=== PATIENT | male | born 1970 | race Caucasian/White ===

== ENCOUNTER 2017-07-13 11:17 | Inpatient (IN) | payer OTHER ==
--- NOTE | 2017-07-13 12:52 | XRay Report ---
ROUTINE CHEST, TWO VIEWS: HISTORY: Shortness of breath. The trachea, heart, mediastinal contour, lung steinberg and bony thorax are unremarkable. 2-lead pacemaker device is in position. IMPRESSION: Unremarkable chest x-ray.
[2017-07-13 13:02] LABS: Anion Gap 17 mmol/L; Blood Urea Nitrogen 18 mg/dL (9-20); Calcium 9.2 mg/dL (8.4-10.2); Carbon Dioxide 25 mmol/L (22-30); Chloride 101.5 mmol/L (98-107); Glucose 134 mg/dL (75-100); Potassium 4.1 mmol/L (3.6-5.0); Sodium 139 mmol/L (137-145)
[2017-07-13 13:03] LABS: Basophils % (Auto) 0.5 % (0.0-1.8); Eosinophils % (Auto) 0.2 % (0.0-4.3); Hematocrit 42.9 % (35.5-45.6); Hemoglobin 14.2 gm/dl (11.8-15.2); Mean Corpuscular HGB Conc 33 % (32-34); Mean Corpuscular Hemoglobin 30 pg (28-32); Mean Corpuscular Volume 92 fl (84-94); Platelet Count 265 K/mm3 (140-440); Red Blood Count 4.68 M/mm3 (3.65-5.03); White Blood Count 9.7 K/mm3 (4.5-11.0)
--- NOTE | 2017-07-13 16:12 | Consultation ---
History of Present Illness Consult date: 07/13/17 Consult reason: arrhythmia History of present illness: This is a 47yr old male who presents with recurrent AICD discharge. Patient was just released from [facility] on yesterday after treatment for multiple ICD shocks. He reports a recent complex history of ventricular arrhythmias and has a [facility] cardiac defibrillator in situ. He is on amiodarone 200mg daily. Patient reports an extensive cardiac workup including a cardiac catheterization and EP study done at [facility] main 3 weeks ago. While in the ED, his AICD was interrogated which revealed ventricular tachycardia requiring appropriate therapy. The patient is resting comfortably and has no chest pain, shortness of breath or palpitations. Cardiac consultation was requested. Medications and Allergies Allergies Allergy/AdvReac Type Severity Reaction Status Date / Time No Known Allergies Allergy Unverified 07/13/17 11:56 Home Medications Medication Instructions Recorded Confirmed Last Taken Type Amiodarone HCl [Amiodarone 100 MG 200 mg PO 07/13/17 07/13/17 History TAB] Active Meds: Active Medications Amiodarone HCl 900 mg/ (Dextrose) 500 mls @ 33.33 mls/hr IV DIRECT TERESA; 1 MG /MIN PRN Reason: Protocol Physical Examination Vital Signs Temp Pulse Resp BP Pulse Ox 98.1 F 64 20 129/90 99 07/13/17 11:57 07/13/17 11:57 07/13/17 11:57 07/13/17 11:57 07/13/17 11:57 General appearance: no acute distress HEENT: Positive: PERRL Neck: Positive: trachea midline Cardiac: Positive: Reg Rate and Rhythm Lungs: Positive: Decreased Breath Sounds Neuro: Positive: Grossly Intact Extremities: Absent: edema Results 07/13/17 12:28 07/13/17 12:28 CBC 07/13/17 Range/Units 12:28 WBC 9.7 (4.5-11.0) K/mm3 RBC 4.68 (3.65-5.03) M/mm3 Hgb 14.2 (11.8-15.2) gm/dl Hct 42.9 (35.5-45.6) % Plt Count 265 (140-440) K/mm3 Lymph # 1.4 (1.2-5.4) K/mm3 [place] # 0.7 (0.0-0.8) K/mm3 Eos # 0.0 (0.0-0.4) K/mm3 Baso # 0.0 (0.0-0.1) K/mm3 Comprehensive Metabolic Panel 07/13/17 Range/Units 12:28 Sodium 139 (137-145) mmol/L Potassium 4.1 (3.6-5.0) mmol/L Chloride 101.5 (98-107) mmol/L Carbon Dioxide 25 (22-30) mmol/L BUN 18 (9-20) mg/dL Creatinine 0.8 (0.8-1.5) mg/dL Glucose 134 H (75-100) mg/dL Calcium 9.2 (8.4-10.2) mg/dL Assessment and Plan AICD discharge ([facility]) interrogation revealed VT requiring appropriate therapy. Plan: We will recommend intravenous amiodarone drip for suppression of VT. Obtain cardiac records from [facility] main.
--- NOTE | 2017-07-13 16:33 | Emergency Department Report ---
ED General Adult HPI - General Chief complaint: Arrhythmia/Palpitations Stated complaint: PACE MAKER WENT OFF Time Seen by Provider: 07/13/17 14:32 Source: patient Mode of arrival: Wheelchair Limitations: No Limitations - History of Present Illness Initial comments: Patient is a 47-year-old male asked medical history of implantable pacemaker secondary to unknown cardiac issue. Comes in with chest pain and ICD and defibrillator firing constantly. Patient had a pacemaker inserted on 2016 he was at [facility] for 3 days and released. Patient states that he is having chest pain secondary to a CD firing. As an electrical type of pain it is a 7 out of 10 as located on left side of his chest it is intermittent. He denies any nausea. But he is diaphoretic. She states he's acts [facility] for a second opinion due to the internal auditor at [facility] not knowing what was causing his symptoms. Severity scale (0 -10): 0 - Related Data Home Medications Medication Instructions Recorded Confirmed Last Taken Amiodarone HCl [Amiodarone 100 MG 200 mg PO 07/13/17 07/13/17 TAB] Allergies Allergy/AdvReac Type Severity Reaction Status Date / Time No Known Allergies Allergy Unverified 07/13/17 11:56 ED Review of Systems ROS: Stated complaint: PACE MAKER WENT OFF Other details as noted in HPI Constitutional: denies: chills, fever Eyes: denies: eye pain, eye discharge, vision change ENT: denies: ear pain, throat pain Respiratory: denies: cough, shortness of breath, wheezing Cardiovascular: chest pain. denies: palpitations Endocrine: no symptoms reported Gastrointestinal: denies: abdominal pain, nausea, diarrhea Genitourinary: denies: urgency, dysuria Musculoskeletal: denies: back pain, joint swelling, arthralgia Skin: denies: rash, lesions Neurological: denies: headache, weakness, paresthesias Psychiatric: denies: anxiety, depression Hematological/Lymphatic: denies: easy bleeding, easy bruising ED Past Medical Hx - Past Medical History Previous Medical History?: Yes Additional medical history: cardiac arrhythmia - Surgical History Past Surgical History?: Yes Hx Appendectomy: Yes - Social History Smoking Status: Never Smoker Substance Use Type: Prescribed - Medications Home Medications: Home Medications Medication Instructions Recorded Confirmed Last Taken Type Amiodarone HCl [Amiodarone 100 MG 200 mg PO 07/13/17 07/13/17 History TAB] ED Physical Exam - General Limitations: No Limitations General appearance: alert, in no apparent distress - Head Head exam: Present: atraumatic, normocephalic - Eye Eye exam: Present: normal appearance - ENT ENT exam: Present: mucous membranes moist - Neck Neck exam: Present: normal inspection - Respiratory Respiratory exam: Present: normal lung sounds bilaterally. Absent: respiratory distress - Cardiovascular Cardiovascular Exam: Present: regular rate, normal rhythm. Absent: systolic murmur, diastolic murmur, rubs, gallop - GI/Abdominal GI/Abdominal exam: Present: soft, normal bowel sounds - Rectal Rectal exam: Present: deferred - Extremities Exam Extremities exam: Present: normal inspection - Back Exam Back exam: Present: normal inspection - Neurological Exam Neurological exam: Present: alert, oriented X3 - Psychiatric Psychiatric exam: Present: normal affect, normal mood - Skin Skin exam: Present: intact, normal color, diaphoretic. Absent: rash ED Course Vital Signs 07/13/17 07/13/17 07/13/17 11:57 12:50 12:51 Temperature 98.1 F Pulse Rate 64 63 Respiratory 20 16 16 Rate Blood Pressure 129/90 Blood Pressure 122/97 [Right] O2 Sat by Pulse 99 99 99 Oximetry - Reevaluation(s) Reevaluation #1: 07/13/17 16:34 The patient comes in and is evaluated by [facility]. His pacemaker was interrogated his atrial tachycardic pacemaker is not operating well. - Consultations Consultation #1: 07/13/17 16:[address] Han internal auditor at [facility] he will see the patient and patient will be nothing by mouth after midnight. ED Medical Decision Making - Lab Data Result diagrams: 07/13/17 12:28 07/13/17 12:28 Lab Results 07/13/17 07/13/17 Range/Units 12:28 12:28 WBC 9.7 (4.5-11.0) K/mm3 RBC 4.68 (3.65-5.03) M/mm3 Hgb 14.2 (11.8-15.2) gm/dl Hct 42.9 (35.5-45.6) % MCV 92 (84-94) fl MCH 30 (28-32) pg MCHC 33 (32-34) % RDW 12.0 L (13.2-15.2) % Plt Count 265 (140-440) K/mm3 Lymph % (Auto) 14.6 (13.4-35.0) % [place] % (Auto) 7.3 (0.0-7.3) % Eos % (Auto) 0.2 (0.0-4.3) % Baso % (Auto) 0.5 (0.0-1.8) % Lymph # 1.4 (1.2-5.4) K/mm3 [place] # 0.7 (0.0-0.8) K/mm3 Eos # 0.0 (0.0-0.4) K/mm3 Baso # 0.0 (0.0-0.1) K/mm3 Seg Neutrophils % 77.4 H (40.0-70.0) % Seg Neutrophils # 7.5 (1.8-7.7) K/mm3 Sodium 139 (137-145) mmol/L Potassium 4.1 (3.6-5.0) mmol/L Chloride 101.5 (98-107) mmol/L Carbon Dioxide 25 (22-30) mmol/L Anion Gap 17 mmol/L BUN 18 (9-20) mg/dL Creatinine 0.8 (0.8-1.5) mg/dL Estimated GFR > 60 ml/min BUN/Creatinine Ratio 22.50 % Glucose 134 H (75-100) mg/dL Calcium 9.2 (8.4-10.2) mg/dL Troponin T < 0.010 (0.00-0.029) ng/mL - EKG Data -: EKG Interpreted by Ny - EKG Data 07/13/17 16:37 EKG shows sinus rhythm multiple ventricular premature complexes borderline T- wave abnormalities and prolonged QT interval. No prior comparison. - Radiology Data Radiology results: report reviewed, image reviewed Chest x-ray: Shows no acute cardiopulmonary disease. - Medical Decision Making Chief medical diagnosis: Ectopic pacemaker Differential medical diagnosis: Arrhythmia, ventricular fibrillation, ventricular tachycardia, Non stemi I will get CBC, CMP, EKG, chest x-ray, troponin troponin and interrogate pacemaker and IV pain medication. Patient's atrial tachycardiac pacer is not functioning per [facility]'s pacer tach. I will consult with internal auditor. Patient will be admitted to the hospital discussed with patient he agrees with plan. Critical care attestation.: If time is entered above; I have spent that time in minutes in the direct care of this critically ill patient, excluding procedure time. ED Disposition Clinical Impression: Ventricular tachycardia Chest pain Qualifiers: Chest pain type: unspecified Qualified Code(s): R07.9 - Chest pain, unspecified Pacemaker complications Qualifiers: Encounter type: initial encounter Qualified Code(s): T82.9XXA - Unspecified complication of cardiac and vascular prosthetic device, implant and graft, initial encounter Disposition: 09 OP ADMIT IP TO THIS HOSP Is pt being admited?: Yes Does the pt Need Aspirin: No Condition: Stable Instructions: Chest Pain (ED) Referrals: PRIMARY CARE, [Primary Care Provider] - 3-5 Days Time of Disposition: 16:43
[2017-07-13] MEDS ORDERED: MORPHINE IV ONE (16:46)
[2017-07-13] MEDS ORDERED: CORDARONE 900 MG in D5W 482 ML IV SCH (17:00)
[2017-07-13] MEDS ORDERED: DILAUDID IV PRN (19:08)
[2017-07-13] MEDS ORDERED: MILK OF MAGNESIA PO PRN (19:08)
[2017-07-13] MEDS ORDERED: AMBIEN PO PRN (19:08)
[2017-07-13] MEDS ORDERED: ZOFRAN IV PRN (19:08)
[2017-07-13] MEDS ORDERED: TYLENOL PO PRN (19:08)
[2017-07-13] MEDS ORDERED: PERCOCET 5/325 PO PRN (19:08)
[2017-07-13] MEDS ORDERED: DULCOLAX PR PRN (19:08)
--- NOTE | 2017-07-13 19:08 | History and Physical Report ---
History of Present Illness Date of examination: 07/13/17 Date of admission: 07/13/17 16:44 Chief complaint: 07/13/17 CC: RECURRENT PALPITATIONS AND AICD SHOCKS 1 week History of present illness: SNOQUALMIE: 47 y/o male with no significant PMH till 2016 developed severe palpitations and was diagnosed to be in V tach.Had AICD after admission to [facility] .Had multiple discharges 1 week ago - was readmitted AICD interrogated and was started on Amiodarone 200 mg po BID.Had as many as 69 shocks/discharges 2 days ago.Today he had amout 3 discharges which is much better but patient worried about recurrent discharges.No Chest pain or SOB.No Exacerbating or relieving factors. Past History Past Medical History: arrhythmia (V tach) Past Surgical History: Other (Aicd insertion) Medications and Allergies Allergies Allergy/AdvReac Type Severity Reaction Status Date / Time No Known Allergies Allergy Unverified 07/13/17 11:56 Home Medications Medication Instructions Recorded Confirmed Last Taken Type Amiodarone HCl [Amiodarone 100 MG 200 mg PO BID 07/13/17 07/13/17 07/13/17 History TAB] Active Meds: Active Medications Enoxaparin Sodium (Lovenox) 40 mg SUB-Q QDAY TERESA Amiodarone HCl 900 mg/ (Dextrose) 500 mls @ 33.33 mls/hr IV DIRECT TERESA; 1 MG /MIN PRN Reason: Protocol Last Admin: 07/13/17 17:36 Dose: 1 mg/min, 33.33 mls/hr Review of Systems All systems: negative Constitutional: no weight loss, no weight gain, no fever, no chills, no sweats, no night sweats Ears, nose, mouth and throat: no dysphagia, no hoarseness, no sore throat Cardiovascular: palpitations, no chest pain, no orthopnea, no edema, no syncope , no lightheadedness, no shortness of breath, no dyspnea on exertion Respiratory: no cough, no cough with sputum, no excessive sputum, no hemoptysis , no shortness of breath, no dyspnea on exertion Gastrointestinal: no abdominal pain, no nausea, no vomiting, no diarrhea, no constipation Genitourinary Male: no dysuria, no hematuria, no flank pain, no discharge, no urinary frequency, no urinary hesitancy Musculoskeletal: no neck stiffness, no neck pain, no shooting arm pain, no arm numbness/tingling Integumentary: no rash, no pruritis, no redness, no sores, no wounds, no jaundice, no boils, no blisters Neurological: no seizures, no syncope Psychiatric: no anxiety, no memory loss, no change in sleep habits, no sleep disturbances, no insomnia Endocrine: no cold intolerance, no heat intolerance, no polyphagia, no excessive thirst, no polydipsia, no polyuria Hematologic/Lymphatic: no easy bruising, no easy bleeding Allergic/Immunologic: no urticaria, no allergic rhinitis, no wheezing Exam - Constitutional Vitals: Temp Pulse Resp BP Pulse Ox 98.1 F 80 22 133/86 97 07/13/17 11:57 07/13/17 18:51 07/13/17 18:51 07/13/17 18:51 07/13/17 18:51 General appearance: Present: no acute distress, well-nourished - EENT Eyes: Present: PERRL ENT: hearing intact, clear oral mucosa - Neck Neck: Present: supple, normal ROM - Respiratory Respiratory effort: normal Respiratory: bilateral: CTA - Cardiovascular Heart rate: 70 (pvc's) Heart Sounds: Present: S1 & S2. Absent: rub, click - Extremities Extremities: pulses symmetrical, No edema Peripheral Pulses: within normal limits - Abdominal General gastrointestinal: Present: soft, non-tender, non-distended, normal bowel sounds Male genitourinary: Present: normal - Integumentary Integumentary: Present: clear, warm, dry - Musculoskeletal Musculoskeletal: gait normal, strength equal bilaterally - Psychiatric Psychiatric: appropriate mood/affect, intact judgment & insight - Neurologic Neurologic: CNII-XII intact, moves all extremities Results - Labs CBC & Chem 7: 07/13/17 12:28 07/13/17 12:28 Labs: Laboratory Last Values WBC 9.7 K/mm3 (4.5-11.0) 07/13/17 12:28 RBC 4.68 M/mm3 (3.65-5.03) 07/13/17 12:28 Hgb 14.2 gm/dl (11.8-15.2) 07/13/17 12:28 Hct 42.9 % (35.5-45.6) 07/13/17 12:28 MCV 92 fl (84-94) 07/13/17 12:28 MCH 30 pg (28-32) 07/13/17 12:28 MCHC 33 % (32-34) 07/13/17 12:28 RDW 12.0 % (13.2-15.2) L 07/13/17 12:28 Plt Count 265 K/mm3 (140-440) 07/13/17 12:28 Lymph % (Auto) 14.6 % (13.4-35.0) 07/13/17 12:28 [place] % (Auto) 7.3 % (0.0-7.3) 07/13/17 12:28 Eos % (Auto) 0.2 % (0.0-4.3) 07/13/17 12: Baso % (Auto) 0.5 % (0.0-1.8) 07/13/17 12:28 Lymph # 1.4 K/mm3 (1.2-5.4) 07/13/17 12:28 [place] # 0.7 K/mm3 (0.0-0.8) 07/13/17 12:28 Eos # 0.0 K/mm3 (0.0-0.4) 07/13/17 12:28 Baso # 0.0 K/mm3 (0.0-0.1) 07/13/17 12:28 Seg Neutrophils % 77.4 % (40.0-70.0) H 07/13/17 12:28 Seg Neutrophils # 7.5 K/mm3 (1.8-7.7) 07/13/17 12:28 Sodium 139 mmol/L (137-145) 07/13/17 12:28 Potassium 4.1 mmol/L (3.6-5.0) 07/13/17 12:28 Chloride 101.5 mmol/L (98-107) 07/13/17 12:28 Carbon Dioxide 25 mmol/L (22-30) 07/13/17 12:28 Anion Gap 17 mmol/L 07/13/17 12:28 BUN 18 mg/dL (9-20) 07/13/17 12:28 Creatinine 0.8 mg/dL (0.8-1.5) 07/13/17 12:28 Estimated GFR > 60 ml/min 07/13/17 12:28 BUN/Creatinine Ratio 22.50 % 07/13/17 12:28 Glucose 134 mg/dL (75-100) H 07/13/17 12:28 Calcium 9.2 mg/dL (8.4-10.2) 07/13/17 12:28 Troponin T < 0.010 ng/mL (0.00-0.029) 07/13/17 12:28 - Imaging and Cardiology EKG: report reviewed (recurrent pvc's) Chest x-ray: report reviewed Assessment and Plan Advance Directives: Yes (Full code) VTE prophylaxis?: Chemical Plan of care discussed with patient/family: Yes - Patient Problems (1) Ventricular tachycardia Current Visit: Yes Status: Acute Plan to address problem: Recurrent Patient on Amiodarone- better controlled Dr Christopher Sawyer EPS specialist consulted. (2) AICD discharge Current Visit: Yes Status: Acute Plan to address problem: Interrogated in [place] by [facility] represantative and settings were adjusted under the Guidance of Dr Sawyer Cont Amiodarone (3) DVT prophylaxis Current Visit: Yes Status: Acute Plan to address problem: On Lovenox
[2017-07-13] MEDS ORDERED: D5NS 1,000 ML IV SCH (20:00)
[2017-07-14 07:49] LABS: Basophils % (Auto) 0.4 % (0.0-1.8); Eosinophils % (Auto) 0.9 % (0.0-4.3); Hematocrit 38.6 % (35.5-45.6); Hemoglobin 13.5 gm/dl (11.8-15.2); Mean Corpuscular HGB Conc 35 % (32-34); Mean Corpuscular Hemoglobin 31 pg (28-32); Mean Corpuscular Volume 90 fl (84-94); Platelet Count 211 K/mm3 (140-440); Red Blood Count 4.32 M/mm3 (3.65-5.03); White Blood Count 10.8 K/mm3 (4.5-11.0)
[2017-07-14 08:07] LABS: Alanine Aminotransferase 27 units/L (7-56); Albumin 3.5 g/dL (3.9-5); Albumin/Globulin Ratio 0.9 %; Alkaline Phosphatase 61 units/L (35-129); Anion Gap 17 mmol/L; Blood Urea Nitrogen 14 mg/dL (9-20); Calcium 8.6 mg/dL (8.4-10.2); Carbon Dioxide 24 mmol/L (22-30); Chloride 101.8 mmol/L (98-107); Glucose 116 mg/dL (75-100); Potassium 3.7 mmol/L (3.6-5.0); Sodium 139 mmol/L (137-145); Total Protein 7.3 g/dL (6.3-8.2)
--- NOTE | 2017-07-14 09:22 | Progress Note ---
Assessment and Plan AICD discharge ([facility]) interrogation revealed VT requiring appropriate therapy. Hx of SVT normal coronaries, EF 50% on [facility] 06/2017 [place] [facility] [place] cardiac MRI 06/2017 recent EP ablation Subjective Date of service: 07/14/17 Interval history: No events on telemetry monitoring overnight. Remains on IV amiodarone. Objective Vital Signs Temp Pulse Resp BP BP Pulse Ox 07/14/17 08:18 98.6 F 80 24 122/69 96 07/14/17 05:27 97.9 F 70 16 138/39 96 07/14/17 05:24 98.6 F 80 16 126/84 98 07/13/17 21:14 18 98 07/13/17 21:02 78 07/13/17 21:01 98.1 F 80 18 135/91 97 07/13/17 20:23 80 19 141/83 97 07/13/17 20:00 77 18 133/86 98 07/13/17 19:30 77 24 133/86 98 07/13/17 19:00 80 25 H 135/79 97 07/13/17 18:51 80 22 133/86 97 07/13/17 18:41 81 23 128/74 93 07/13/17 18:30 84 16 128/74 97 07/13/17 18:21 84 9 L 133/86 98 07/13/17 18:11 84 16 133/86 98 07/13/17 18:00 80 26 H 133/86 98 07/13/17 17:51 80 23 138/85 97 07/13/17 17:41 80 27 H 138/85 96 07/13/17 17:30 84 18 138/85 07/13/17 17:01 85 15 141/85 - Physical Examination General: No Apparent Distress HEENT: Positive: PERRL Cardiac: Positive: Other (paced) Neuro: Positive: Grossly Intact Extremities: Absent: edema - Labs and Meds Cardiac Enzymes 07/14/17 Range/Units 06:44 AST 17 (5-40) units/L CBC 07/14/17 Range/Units 06:44 WBC 10.8 (4.5-11.0) K/mm3 RBC 4.32 (3.65-5.03) M/mm3 Hgb 13.5 (11.8-15.2) gm/dl Hct 38.6 (35.5-45.6) % Plt Count 211 (140-440) K/mm3 Lymph # 1.7 (1.2-5.4) K/mm3 [place] # 1.0 H (0.0-0.8) K/mm3 Eos # 0.1 (0.0-0.4) K/mm3 Baso # 0.0 (0.0-0.1) K/mm3 Comprehensive Metabolic Panel 07/14/17 Range/Units 06:44 Sodium 139 (137-145) mmol/L Potassium 3.7 (3.6-5.0) mmol/L Chloride 101.8 (98-107) mmol/L Carbon Dioxide 24 (22-30) mmol/L BUN 14 (9-20) mg/dL Creatinine 0.8 (0.8-1.5) mg/dL Glucose 116 H (75-100) mg/dL Calcium 8.6 (8.4-10.2) mg/dL AST 17 (5-40) units/L ALT 27 (7-56) units/L Alkaline Phosphatase 61 (35-129) units/L Total Protein 7.3 (6.3-8.2) g/dL Albumin 3.5 L (3.9-5) g/dL - Imaging and Cardiology EKG: report reviewed (recurrent pvc's)
[2017-07-14] MEDS ORDERED: LOVENOX SUB-Q SCH (10:00)
[2017-07-14] MEDS: LOVENOX SUB-Q SCH (11:14)
[2017-07-14] MEDS: TOPROL XL PO SCH (13:40)
--- NOTE | 2017-07-14 16:44 | Progress Note ---
Assessment and Plan Assessment and plan: AICD firing/palpitations. Patient admitted to Telemetry. He was evaluated by irrigation supervisor. On Amiodarone. No chest pain. Ventricular tachycardia. On Amiodarone Full code status History Interval history: Palpitations AICD firing no chest pain Hospitalist Physical - Physical exam Narrative exam: Gen Appearance: Not in acute distress HEENT: normocephalic, atraumatic Neck: supple, no JVD Lungs: Clear to auscultation, bilaterally, no rales, no wheeze Heart: S1 and S2 regular, no murmurs, rubs or gallop Abdomen: Soft , non tender, non distended, normal bowel sounds Extremity: No edema, no clubbing or cyanosis, Neuro : Awake,alert, oriented x 3, moves all extremities - Constitutional Vitals: Temp Pulse Resp BP Pulse Ox 98.6 F 80 24 122/69 96 07/14/17 08:18 07/14/17 08:18 07/14/17 08:18 07/14/17 08:18 07/14/17 08:18 General appearance: Present: no acute distress, well-nourished Results - Labs CBC & Chem 7: 07/14/17 06:44 07/15/17 00:49 Labs: Laboratory Last Values WBC 10.8 K/mm3 (4.5-11.0) 07/14/17 06:44 RBC 4.32 M/mm3 (3.65-5.03) 07/14/17 06:44 Hgb 13.5 gm/dl (11.8-15.2) 07/14/17 06:44 Hct 38.6 % (35.5-45.6) 07/14/17 06:44 MCV 90 fl (84-94) 07/14/17 06:44 MCH 31 pg (28-32) 07/14/17 06:44 MCHC 35 % (32-34) H 07/14/17 06:44 RDW 12.0 % (13.2-15.2) L 07/14/17 06:44 Plt Count 211 K/mm3 (140-440) 07/14/17 06:44 Lymph % (Auto) 15.9 % (13.4-35.0) 07/14/17 06:44 [place] % (Auto) 8.9 % (0.0-7.3) H 07/14/17 06:44 Eos % (Auto) 0.9 % (0.0-4.3) 07/14/17 06:44 Baso % (Auto) 0.4 % (0.0-1.8) 07/14/17 06:44 Lymph # 1.7 K/mm3 (1.2-5.4) 07/14/17 06:44 [place] # 1.0 K/mm3 (0.0-0.8) H 07/14/17 06:44 Eos # 0.1 K/mm3 (0.0-0.4) 07/14/17 06:44 Baso # 0.0 K/mm3 (0.0-0.1) 07/14/17 06:44 Seg Neutrophils % 73.9 % (40.0-70.0) H 07/14/17 06:44 Seg Neutrophils # 8.0 K/mm3 (1.8-7.7) H 07/14/17 06:44 Sodium 139 mmol/L (137-145) 07/14/17 06:44 Potassium 3.7 mmol/L (3.6-5.0) 07/14/17 06:44 Chloride 101.8 mmol/L (98-107) 07/14/17 06:44 Carbon Dioxide 24 mmol/L (22-30) 07/14/17 06:44 Anion Gap 17 mmol/L 07/14/17 06:44 BUN 14 mg/dL (9-20) 07/14/17 06:44 Creatinine 0.8 mg/dL (0.8-1.5) 07/14/17 06:44 Estimated GFR > 60 ml/min 07/14/17 06:44 BUN/Creatinine Ratio 17.50 % 07/14/17 06:44 Glucose 116 mg/dL (75-100) H 07/14/17 06:44 Calcium 8.6 mg/dL (8.4-10.2) 07/14/17 06:44 Total Bilirubin 1.20 mg/dL (0.1-1.2) 07/14/17 06:44 AST 17 units/L (5-40) 07/14/17 06:44 ALT 27 units/L (7-56) 07/14/17 06:44 Alkaline Phosphatase 61 units/L (35-129) 07/14/17 06:44 Troponin T < 0.010 ng/mL (0.00-0.029) 07/14/17 06:44 Total Protein 7.3 g/dL (6.3-8.2) 07/14/17 06:44 Albumin 3.5 g/dL (3.9-5) L 07/14/17 06:44 Albumin/Globulin Ratio 0.9 % 07/14/17 06:44
[2017-07-14] MEDS: CORDARONE PO SCH (22:38)
[2017-07-15 01:25] LABS: Anion Gap 17 mmol/L; BUN/Creatinine Ratio 21.11; Blood Urea Nitrogen 19 mg/dL (9-20); Calcium 8.9 mg/dL (8.4-10.2); Carbon Dioxide 24 mmol/L (22-30); Chloride 103.1 mmol/L (98-107); Glucose 120 mg/dL (75-100); Potassium 3.8 mmol/L (3.6-5.0); Sodium 140 mmol/L (137-145)
--- NOTE | 2017-07-15 10:02 | Progress Note ---
Assessment and Plan Impression Recurrent idiopathic ventricular tachycardia Status post prophylactic AICD with recent discharge History of normal coronaries by recent History of normal LV systolic function EF from 50% by recent echo History of unsuccessful ablation recently Plan Patient has been started on amiodarone and beta blockers and is stable Patient has an EP appointment set up for this Monday Patient can be discharged home All his electrolytes have been optimized Extensively discussed with patient and family Subjective Date of service: 07/15/17 Principal diagnosis: symptomatic ventricular tachycardia Interval history: No events overnight Objective Vital Signs Temp Pulse Resp BP Pulse Ox 07/15/17 03:32 97.9 F 80 18 125/82 96 07/14/17 22:59 80 18 115/70 96 07/14/17 21:00 80 07/14/17 19:34 98.3 F 80 18 126/77 97 07/14/17 17:03 98.3 F 80 20 112/82 97 - Physical Examination Narrative exam: GEN: NAD HEENT: Carotids 2+ NECK: SUPPLE, CVS: RRR, NORMAL S1S2 LUNGS/CHEST: CTA ABD: SOFT, EXTREMITIES- MSK: FROM X 4 EXTREMITIES NEURO: CN 2-12 GROSSLY INTACT, NO FOCAL DEFICITS PSY: CALM General: No Apparent Distress HEENT: Positive: PERRL Neck: Positive: trachea midline Neuro: Positive: Grossly Intact Extremities: Absent: edema - Labs and Meds Comprehensive Metabolic Panel 07/15/17 Range/Units 00:49 Sodium 140 (137-145) mmol/L Potassium 3.8 (3.6-5.0) mmol/L Chloride 103.1 (98-107) mmol/L Carbon Dioxide 24 (22-30) mmol/L BUN 19 (9-20) mg/dL Creatinine 0.9 (0.8-1.5) mg/dL Glucose 120 H (75-100) mg/dL Calcium 8.9 (8.4-10.2) mg/dL - Imaging and Cardiology EKG: report reviewed (recurrent pvc's)
[2017-07-15 10:17] VITALS: BP 117/82
--- NOTE | 2017-07-15 10:26 | Discharge Summary ---
Providers - Providers Date of Admission: 07/13/17 16:44 Date of discharge: 07/15/17 Attending physician: CHRISTIANO DUGAN 07/13/17 19:12 Consult to Physician [CONS] Routine Consulting Provider: CHANDRAKANT SAWYER Reason For Exam: defibrillator discharge Place consult to:: [facility] Notified:: yes Was contact made?: Yes If yes, spoke with:: joanna Primary care physician: ELECTROPHYSIOLOGY TECHNICIAN Hospitalization Condition: Stable Disposition: DC-01 TO HOME OR SELFCARE - Discharge Diagnoses (1) AICD discharge Status: Acute (2) Ventricular tachycardia Status: Acute Core Measure Documentation - Palliative Care Palliative Care/ Comfort Measures: Not Applicable - Core Measures Any of the following diagnoses?: none Exam - Constitutional Vitals: Temp Pulse Resp BP Pulse Ox 98.7 F 80 18 117/82 96 07/15/17 08:42 07/15/17 08:42 07/15/17 08:42 07/15/17 08:42 07/15/17 08:42 Plan Diet: regular Additional Instructions: 1.Follow up with PCP in 1 week. 2.Follow up with Dr. Sawyer on 07/18/17. 3.No strenous activity until cleared by cardiology. Follow up with: PRIMARY CARE, [Primary Care Provider] - 3-5 Days Prescriptions: Amiodarone [Cordarone 200 MG TAB] 400 mg PO BID #120 tablet Metoprolol Xl [Metoprolol SUCCINATE ER TAB] 100 mg PO QDAY #100 tablet
[2017-07-15] MEDS: TOPROL XL PO SCH (10:44)
[2017-07-15] MEDS: CORDARONE PO SCH (10:44)
[2017-07-15] MEDS: LOVENOX SUB-Q SCH (10:45)
== END 2017-07-15 14:50 | disposition home or self-care (01) | DRG 310 ==
LOC: ED 11:17 → 4A 16:44
PROVIDERS: ADMIT Internal Medicine; ATTEND Internal Medicine
PROC: 4B02XTZ Measurement of Cardiac Defibrillator, External Approach (ICD-10-PCS; principal; 2017-07-13)
DX: I47.2 Ventricular tachycardia (principal); Z90.49 Acquired absence of other specified parts of digestive tract; Z95.0 Presence of cardiac pacemaker
CPT/HCPCS: 36415; 71020; 80048; 80053; 83735; 84484; 85025; 93005; 93010; 96365; 96366; J0282; J1650; J7060